=== PATIENT | female | born 2000 | race Caucasian/White ===

== ENCOUNTER 2024-09-05 20:20 | Inpatient (IN) ==
[2024-09-05] MEDS ORDERED: LIDOCAINE 1% LOCAL 20 ML VIAL INFIL PRN (21:01)
[2024-09-05] MEDS ORDERED: ACETAMINOPHEN 325 MG TAB PO PRN (21:01)
[2024-09-05] MEDS ORDERED: OXYTOCIN 30 UNITS/NSS 30 UNITS/500 ML BAG IV PRN (21:01)
[2024-09-05] MEDS ORDERED: CALCIUM CARBONATE 500 MG CHEWABLE TAB PO PRN (21:01)
--- NOTE | 2024-09-05 21:08 | History & Physical Report ---
Date of Service September 05, 2024 Assessment & Plan (1) Uterine contractions at greater than 20 weeks of gestation: Plan: 23-year-old -0-0-1 at 40 weeks and 3 days of gestation presenting today with irregular contractions, cervical change since last week, Vital signs stable afebrile, GBS negative, FHR categ I No medical problems, Plan to admit, monitor, labs, we discussed the questions of expectant management versus augmentation with Pitocin, epidural and then AROM. Patient decided to walk around, expect management for now and will think about options. All questions were answered. (2) Post-term , 40-42 weeks of gestation: History of Present Illness Chief Complaint: Contractions Primary Care Provider: NO PCP patient is a 23-year-old -0-0-1 at 40 weeks and 3 days of gestation who has been feeling contractions since this morning, they got more regular and painful after 3 PM. They have been coming every 5 to 6 minutes and the pain level is 8/10 when it was the most severe. She denies leakage of fluid or vaginal bleeding. She reports good movements. Her has been uncomplicated, GBS negative. She was here last week with irregular contractions and her cervix was unchanged, she was sent home and was scheduled for induction of labor for this morning. Patient decided to cancel and reschedule for next week. She was waiting for her labor to start. Allergies Allergy/AdvReac Type Severity Reaction Status Date / Time No Known Allergies Allergy Verified 02/14/24 14:28 Home Medications Medication Instructions Recorded Confirmed Type vits no.124-ferrous fum 1 tab PO DAILY 08/29/24 08/29/24 History 27 mg iron-folic acid 800 mcg tablet ( Vitamin) Patient History Medical History PCOS (polycystic ovarian syndrome) Varicella vaccination Surgical History H/O endoscopy Family History Denies family history of Ovarian cancer Breast cancer Colorectal cancer Social History Smoking Status: Never smoker Do You Dip or Chew Tobacco: No; Hx Alcohol Use: No Hx Substance Use: No Preferred Language: Jordanian Communication Ability: Effective Metrology Engineer Required: No Beliefs That Will Affect Care: Orthodoxy Orthodoxy Beliefs: Holiness marital status: marital status details: Thompson Mina (27) [phone] Current Living Situation: Family Current Living Situation Comment: Living with and son, no pets current occupational status: employed current occupation: [employer] How many Children do You have: 1 Other Information That Helps Us Care for You: No Feels Safe at Home: Yes Assistive Devices: None OB History Full-term , 2 years ago [facility] History no history of STDs, no history of chlamydia, gonorrhea, herpes Review of Systems as per Subjective / HPI Physical Exam Constitutional: WD/WN, vitals as above well developed, well nourished and comfortable ( between contractions, mild distress with contractions) Genitourinary: normal external appearance OB Exam Abdomen: + vertex Manual OB Exam: + cervical dilation 5 cm, + cervical effacement 60% and + station -2 OB Exam Monitor Tracing: + external uterine monitor used and + category I Results & Data Vital Signs (Past 12 Hours) Vital Signs Temp Pulse Resp BP 09/05/24 20:35 36.7 C 18 09/05/24 20:32 95 H 102/58 L
[2024-09-05 21:43] LABS: Hematocrit (blood only) 35.6 % (37.0-47.0); Hemoglobin 12.2 g/dl (12.0-16.0); Mean Corpuscular Hemoglobin 29.7 pg (25.0-34.0); Mean Corpuscular Hgb Conc 34.3 g/dL (32.0-36.0); Mean Corpuscular Volume 86.6 fL (80.0-100.0); Mean Platelet Volume 10.9 fL (9.4-12.4); Platelet Count 170 K/uL (130-400); RDW Coefficient of Variation 13.5 % (11.5-14.5); RDW Standard Deviation 41.9 fL (36.4-46.3); Red Blood Count 4.11 M/uL (4.20-5.40); White Blood Count 13.43 K/ul (4.8-10.8)
[2024-09-05] MEDS ORDERED: NALOXONE HCL 1 MG in SODIUM CHLORIDE 0.9% 1,000 ML IV PRN (22:47)
[2024-09-05] MEDS ORDERED: fentaNYL citrate PF 100 MCG/2 ML VIAL EPI PRN (22:47)
[2024-09-05] MEDS ORDERED: LIDOCAINE 2% MPF LOCAL 5 ML VIAL EPI PRN (22:47)
[2024-09-05] MEDS ORDERED: diphenhydrAMINE 50 MG/ML VIAL IV PRN (22:47)
[2024-09-05] MEDS ORDERED: ROPIVACAINE 0.5% PF 5 MG/ML 20 ML VIAL EPI PRN (22:47)
[2024-09-05] MEDS ORDERED: fentANYL 2 MCG/ML BUPIVacaine 0.125%-NSS 100ML BAG EPI PRN (22:47)
[2024-09-05] MEDS ORDERED: NALOXONE HCL 0.4 MG/1 ML VIAL/CARP IV PRN (22:47)
[2024-09-05] MEDS ORDERED: SODIUM CHLORIDE 0.9% PF INJ 10 ML VIAL EPI PRN (22:47)
[2024-09-05] MEDS ORDERED: NALBUPHINE HCL INJ 10 MG/ML AMP IV PRN (22:47)
[2024-09-05] MEDS ORDERED: BUPIVACAINE 0.25% PF 30 ML VIAL EPI PRN (22:47)
[2024-09-05] MEDS ORDERED: ONDANSETRON INJ 2 MG/ML 2 ML VIAL IV PRN (22:47)
[2024-09-05] MEDS ORDERED: ePHEDrine sulfate 50 MG/ML AMP IV PRN (22:47)
--- NOTE | 2024-09-05 22:50 | Anesthesiology Consultation ---
Date of Service September 05, 2024 Assessment & Plan (1) Encounter for pre-operative examination: Chart Review Chart Review: Patient NOT seen in Pre Admission Testing and Acceptable Risk for Labor Epidural Consults Requested none History Height/Weight Height: 5 ft 2 in Weight: 68.039 kg Allergies Allergy/AdvReac Type Severity Reaction Status Date / Time No Known Allergies Allergy Verified 02/14/24 14:28 Medications Home Medications Medication Instructions Recorded Confirmed Last Taken vits no.124-ferrous fum 1 tab PO DAILY 08/29/24 08/29/24 08/28/24 27 mg iron-folic acid 800 mcg tablet ( Vitamin) Past Medical History Medical History (Updated 09/05/24 @ 22:49 by Clay Wise MD) Encounter for pre-operative examination PCOS (polycystic ovarian syndrome) Varicella vaccination Past Family History Family History Denies family history of Ovarian cancer Breast cancer Colorectal cancer Past Surgical History Surgical History H/O endoscopy Social History Smoking Status: Never smoker Do You Dip or Chew Tobacco: No Hx Alcohol Use: No Hx Substance Use: No substance use type: does not use Physical Exam Vital Signs Last Vital Signs Temp 36.7 C 09/05/24 20:35 Pulse 95 H 09/05/24 20:32 Resp 18 09/05/24 20:35 BP 102/58 L 09/05/24 20:32 Testing Laboratory Results 09/05/24 21:28
[2024-09-05] MEDS: SODIUM CHLORIDE 0.9% 1,000 ML IV SCH (23:00)
[2024-09-05] MEDS: LIDOCAINE 2%/EPINEPHRINE 1:200,000 20 ML PF ONE (23:36)
[2024-09-05] MEDS: fentaNYL citrate PF 100 MCG/2 ML VIAL ONE (23:36)
[2024-09-05] MEDS: BUPIVACAINE 0.25% PF 30 ML VIAL ONE (23:37)
[2024-09-05] MEDS: SODIUM CHLORIDE 0.9% PF INJ 10 ML VIAL ONE (23:37)
[2024-09-05] MEDS: fentANYL 2 MCG/ML BUPIVacaine 0.125%-NSS 100ML BAG ONE (23:38)
--- NOTE | 2024-09-06 00:23 | Obstetrical Progress Note ---
Date of Service September 06, 2024 Assessment & Plan Admission and Anticipated Discharge Date Admission Date: September 05, 2024 Subjective Patient is comfortable, received epidural for pain. Vital signs stable afebrile, heart rate category 1, [place] shows contractions every 5 to 6 minutes, Vaginal exam 5 to 6 cm, 70% effaced, -1, Patient does not want augmentation with oxytocin neither AROM, she wants to rest and expectant management for now, Continue to monitor closely. Results & Data Vital Signs (Past 12 Hours) Vital Signs Temp Pulse Resp BP Pulse Ox 09/06/24 00:19 82 93/54 L 09/06/24 00:17 87 100 09/06/24 00:16 82 82/52 L 09/06/24 00:13 83 86/50 L 09/06/24 00:12 77 100 09/06/24 00:10 76 82/49 L 09/06/24 00:09 78 82/52 L 09/06/24 00:07 92 H 82/47 L 100 09/06/24 00:05 90 88/50 L 09/06/24 00:02 100 09/06/24 00:02 91 H 09/06/24 00:02 96 H 83/50 L 09/05/24 23:58 80 09/05/24 23:58 96/57 L 09/05/24 23:58 93 09/05/24 23:58 95 H 09/05/24 23:57 100 09/05/24 23:57 91 H 09/05/24 23:55 94 H 09/05/24 23:55 98/58 L 09/05/24 23:52 100 09/05/24 23:52 83 09/05/24 23:52 103/55 L 09/05/24 23:49 90 09/05/24 23:49 97/58 L 09/05/24 23:47 99 09/05/24 23:47 84 09/05/24 23:46 94 H 09/05/24 23:46 112/61 09/05/24 23:43 78 09/05/24 23:43 105/62 09/05/24 23:42 99 09/05/24 23:42 88 09/05/24 23:40 87 09/05/24 23:40 102/57 L 09/05/24 23:37 100 09/05/24 23:37 82 09/05/24 23:37 100/59 L 09/05/24 23:35 100 H 09/05/24 23:35 97/58 L 09/05/24 23:32 100 09/05/24 23:32 81 09/05/24 23:30 91 09/05/24 23:30 85 09/05/24 23:28 102 H 09/05/24 23:28 117/57 L 09/05/24 23:27 100 09/05/24 23:27 91 H 09/05/24 23:24 90 09/05/24 23:24 91 H 09/05/24 23:22 100 09/05/24 23:22 94 H 09/05/24 23:18 92 H 09/05/24 23:18 115/68 09/05/24 23:17 99 09/05/24 23:17 84 09/05/24 23:17 91 09/05/24 23:17 82 09/05/24 20:35 36.7 C 18 09/05/24 20:32 95 H 102/58 L
[2024-09-06] MEDS ORDERED: NURSING L&D Epidural Breakthrough Pain Update ONE (00:48)
[2024-09-06] MEDS: ePHEDrine sulfate 50 MG/ML AMP ONE (00:56)
[2024-09-06] MEDS: fentaNYL citrate PF 100 MCG/2 ML VIAL EPI STA (01:05)
[2024-09-06] MEDS: BUPIVACAINE 0.25% PF 30 ML VIAL EPI STA (01:05)
[2024-09-06] MEDS: LIDOCAINE 2%/EPINEPHRINE 1:200,000 20 ML PF EPI STA (01:05)
[2024-09-06] MEDS: SODIUM CHLORIDE 0.9% PF INJ 10 ML VIAL EPI STA (01:05)
[2024-09-06] MEDS: OXYTOCIN 30 UNITS/NSS 30 UNITS/500 ML BAG IV PRN (01:14)
--- NOTE | 2024-09-06 05:37 | Obstetrical Progress Note ---
Date of Service September 06, 2024 Assessment & Plan Admission and Anticipated Discharge Date Admission Date: September 05, 2024 Subjective Patient is reevaluated. Patient agreed to start on IV oxytocin For augmentation. She was feeling numb on her legs and wanted that epidural to be turned off. then she started to feel pain on the right side. anesthesiology was consulted and they really started the epidural on the prior rate. Patient still painful on the right side with contractions, denies pressure or urge to push. She declines vaginal exam to check her progress. heart rate category 1. Continue to monitor closely. Results & Data Vital Signs (Past 12 Hours) Vital Signs Temp Pulse Resp BP Pulse Ox 09/06/24 05:32 82 100 09/06/24 05:27 78 95 09/06/24 05:25 72 92 09/06/24 05:23 79 87/51 L 09/06/24 05:22 73 100 09/06/24 05:19 70 94 09/06/24 05:17 75 100 09/06/24 05:12 85 97 09/06/24 05:08 90 107/59 L 09/06/24 05:07 80 100 09/06/24 05:02 76 99 09/06/24 04:57 78 99 09/06/24 04:54 74 100/47 L 09/06/24 04:52 80 99 09/06/24 04:47 82 100 09/06/24 04:42 83 97 09/06/24 04:40 80 103/51 L 09/06/24 04:37 88 99 09/06/24 04:33 81 94 09/06/24 04:32 75 100 09/06/24 04:27 81 99 09/06/24 04:25 85 101/53 L 09/06/24 04:22 80 97 09/06/24 04:17 84 97 09/06/24 04:12 82 100 09/06/24 04:08 80 92/53 L 09/06/24 04:07 94 H 98 09/06/24 04:02 93 H 96 09/06/24 03:57 79 99 09/06/24 03:53 81 88/49 L 09/06/24 03:52 83 98 09/06/24 03:47 86 98 09/06/24 03:42 86 97 09/06/24 03:38 94 H 88/53 L 09/06/24 03:37 91 H 97 09/06/24 03:32 77 97 09/06/24 03:27 81 97 09/06/24 03:24 76 90/49 L 09/06/24 03:22 94 H 97 09/06/24 03:17 85 97 09/06/24 03:12 93 H 98 09/06/24 03:10 82 84/52 L 09/06/24 03:07 80 98 09/06/24 03:02 36.8 C 09/06/24 03:02 94 H 99 09/06/24 02:57 77 100 09/06/24 02:54 89 118/61 09/06/24 02:52 93 H 98 09/06/24 02:47 86 98 09/06/24 02:42 87 100 09/06/24 02:40 83 98/55 L 09/06/24 02:37 85 98 09/06/24 02:32 81 98 09/06/24 02:27 87 98 09/06/24 02:22 93 H 98 09/06/24 02:17 97 H 97 09/06/24 02:12 94 H 98 09/06/24 02:09 87 95/53 L 09/06/24 02:07 84 96 09/06/24 02:02 87 97 09/06/24 01:57 87 98 09/06/24 01:54 93 H 96/52 L 09/06/24 01:52 85 99 09/06/24 01:47 87 98 09/06/24 01:42 82 98 09/06/24 01:40 82 102/52 L 09/06/24 01:37 81 99 09/06/24 01:32 85 98 09/06/24 01:27 89 99 09/06/24 01:26 94 H 90 09/06/24 01:23 90 95/51 L 09/06/24 01:22 94 H 100 09/06/24 01:19 90 90/54 L 09/06/24 01:17 92 H 98 09/06/24 01:16 85 96/52 L 09/06/24 01:13 85 101/54 L 09/06/24 01:12 87 97 09/06/24 01:10 91 H 96/53 L 90 09/06/24 01:07 86 90/55 L 97 09/06/24 01:05 81 94 09/06/24 01:04 92 H 92/53 L 09/06/24 01:02 78 100 09/06/24 01:01 114 H 96/52 L 09/06/24 01:00 88 92 09/06/24 00:58 82 93/55 L 09/06/24 00:57 81 100 09/06/24 00:55 82 87/48 L 09/06/24 00:52 83 84/50 L 100 09/06/24 00:49 93 H 83/50 L 09/06/24 00:47 87 100 09/06/24 00:46 89 79/51 L 09/06/24 00:45 84 92 09/06/24 00:43 81 75/45 L 09/06/24 00:42 83 100 09/06/24 00:41 80 73/41 L 09/06/24 00:37 87 100 09/06/24 00:34 79 78/48 L 09/06/24 00:32 89 100 09/06/24 00:31 82 76/47 L 09/06/24 00:28 83 81/47 L 09/06/24 00:27 82 100 09/06/24 00:25 91 H 86/49 L 09/06/24 00:22 87 83/47 L 100 09/06/24 00:19 82 93/54 L 09/06/24 00:17 87 100 09/06/24 00:16 82 82/52 L 09/06/24 00:13 83 86/50 L 09/06/24 00:12 77 100 09/06/24 00:10 76 82/49 L 09/06/24 00:09 78 82/52 L 09/06/24 00:07 92 H 82/47 L 100 09/06/24 00:05 90 88/50 L 09/06/24 00:02 100 09/06/24 00:02 91 H 09/06/24 00:02 96 H 83/50 L 09/05/24 23:58 80 09/05/24 23:58 96/57 L 09/05/24 23:58 93 09/05/24 23:58 95 H 09/05/24 23:57 100 09/05/24 23:57 91 H 09/05/24 23:55 94 H 09/05/24 23:55 98/58 L 09/05/24 23:52 100 09/05/24 23:52 83 09/05/24 23:52 103/55 L 09/05/24 23:49 90 09/05/24 23:49 97/58 L 09/05/24 23:47 99 09/05/24 23:47 84 09/05/24 23:46 94 H 09/05/24 23:46 112/61 09/05/24 23:43 78 09/05/24 23:43 105/62 09/05/24 23:42 99 09/05/24 23:42 88 09/05/24 23:40 87 09/05/24 23:40 102/57 L 09/05/24 23:37 100 09/05/24 23:37 82 09/05/24 23:37 100/59 L 09/05/24 23:35 100 H 09/05/24 23:35 97/58 L 09/05/24 23:32 100 09/05/24 23:32 81 09/05/24 23:30 91 09/05/24 23:30 85 09/05/24 23:28 102 H 09/05/24 23:28 117/57 L 09/05/24 23:27 100 09/05/24 23:27 91 H 09/05/24 23:24 90 09/05/24 23:24 91 H 09/05/24 23:22 100 09/05/24 23:22 94 H 09/05/24 23:18 92 H 09/05/24 23:18 115/68 09/05/24 23:17 99 09/05/24 23:17 84 09/05/24 23:17 91 09/05/24 23:17 82 09/05/24 20:35 36.7 C 18 09/05/24 20:32 95 H 102/58 L
[2024-09-06] MEDS ORDERED: HYDROCORTISONE ACETATE 25 MG SUPP PR PRN (06:51)
[2024-09-06] MEDS ORDERED: bisacodyL 10 MG SUPP PR PRN (06:51)
[2024-09-06] MEDS ORDERED: oxyCODONE/ACETAMINOPHEN 5mg/325mg TAB PO PRN (06:51)
[2024-09-06] MEDS ORDERED: BENZOCAINE 20% SPRY 85 APPLN/85 GM CAN EXT PRN (06:51)
[2024-09-06] MEDS ORDERED: OXYTOCIN 30 UNITS/NSS 30 UNITS/500 ML BAG IV PRN (06:51)
--- NOTE | 2024-09-06 06:54 | Delivery Summary ---
Vaginal Delivery Summary Date of Service September 06, 2024 Vaginal Delivery Summary Patient was found to be fully dilated and desires to push. She pushed for about 10 min and delivered the head and then shoulders with minimal traction at 06:31. Nuchal cordx1 was reduced. The baby was handed off to the mother. The cord was clampedx2 and cut after 1 minute per patient request. The vagina and perineum were checked and found to have 2nd degree perineal laceration. Rectal exam was done and noted good sphincter tone. The gloves were changes. The vaginal mucosa was repaired with 2/0 vicryl and skin on subcuticular fashion. The placenta was delivered spontaneously as intact and complete. The uterus was explored and found to be empty. QBL was 244 ml. The fundus was firm The baby was a viable female , Apgars 8/9, the weight is pending The mother and the baby tolerated the procedure well. No complications happened and I was present during whole procedure.
--- OUTSIDE RECORDS SUMMARY | 2024-09-06 07:11 | External Medical Summary | Summary of Care ---
Author Name Unknown Organization [facility] Address [address] [place] [address] Phone [phone] Care Team Providers Care Project Engineer Name Role Phone ReynaTukcer Edith BLOOD Primary Care Provider Encounter Details Date Type Department Care Team (Late st Contact Info) Description 08/29/2024 [facility] [address] [place] [id number] Josi Aaron MD [address] [place] [id number] Allergies No known active allergiesdocumented as of this encounter (statuses as of 08/29/2024) Medications 6.75-0.2 MG Oral Tablet Take by mouth. Active documented as of this encounter (statuses as of 08/29/2024) Active Problems Problem Noted Date Diagnosed Date screening for malformation using ultra sonics 05/20/2024 Overview (05/20/2024): Asymmetry of lateral ventricles of brain, unknown significance. Recommend [facility]. Assessment & Plan (05/27/2024 11:10 PM EDT): She presents for a anatomy survey. She was referred due to concern for asymmetry of the lateral ventricles on recent imaging. Labs reviewed: -- genetic screening not performed Imaging reviewed: -- 05/17/24 US report -- IMPRESSION 1. Single live fetus with composite age 23 weeks 5 days and MAHAMED of 09/08/2024. 2. Some asymmetry in lateral ventricles of brain and uncertain significance. Other anatomy well demonstrated and normal, as above. We reviewed the results of today's ultrasound. The estimated weight is appropriate for gestational age in the 28th percentile. The visualized anatomy is unremarkable in appearance. The left lateral ventricle is larger than the right, but both measure within normal limits. The amniotic fluid amount appears normal. We discussed that ultrasound is not able to identify all anomalies, but it is reassuring that no anomalies were seen today. We reviewed the finding of asymmetry of the lateral ventricles. This is most likely related to normal variation. We will plan to reassess in about 6 weeks to confirm that ventriculomegaly remains absent. We discussed the option of genetic screening as this has not previously been performed. She declines at this time. Supervision of other normal , antepartu m 04/18/2024 Overview (05/08/2024): Transferring care 04/18/2024 from [facility] [place] 02/14/24: WBC 7.52, H/H 11.9/35.1, plt 266, rubella immune, RPR nonreactive, HIV negative, Hep B SaG nonreactive, A+ bloodtype/negative antibodies, GC/CT negative, Health counseling 04/18/2024 Overview (08/20/2024): Problem Action Taken Date entered Entered by Date resolved Current needs or questions Patient denies having any current needs or questions 04/18/2024 Ines Morales RN 04/18/24 Problem Action Taken Date entered Entered by Date resolved Current needs or questions Patient denies having any current needs or questions 06/12/2024 Kimberly Duran RN 06/12/2024 Problem Action Taken Date entered Entered by Date resolved Current needs or questions Patient denies having any current needs or questions 08/15/2024 Kimberly Duran RN 08/15/2024 Problem Action Taken Date entered Entered by Date resolved Current needs or questions Planning for GBS today Patient denies having any current needs or questions 08/20/2024 Kimberly Duran RN 08/20/2024 Assessment & Plan (07/17/2024 8:51 AM EST): Problem Action Taken Date entered Entered by Date resolved Current needs or questions Patient denies having any current needs or questions 07/17/2024 Kimberly Duran RN 07/17/2024 Assessment & Plan (05/22/2024 7:49 AM EDT): Problem Action Taken Date entered Entered by Date resolved Current needs or questions Patient denies having any current needs or questions 05/22/2024 Kimberly Duran RN 05/22/2024 Estimated Date of Delivery Comme nts Yes 09/02/2024 Based on Ultraso und documented as of this encounter (statuses as of 08/29/2024) Social History Tobacco Use Types Packs/Day Years Used Date Smoking Tobacco: Never Passive Smoke Exposure: Never Smokeless Tobacco: Never Alcohol Use Standard Drinks/Week Comments Never 0 (1 standard drink = 0.6 oz pur e alcohol) Hunger Vital Sign Answer Date Recorded Within the past 12 months, y ou worried that your food would run out before you got the money to buy more. Never true 06/11/20 24 Within the past 12 months, t he food you bought just didn't last and you didn't have money to get more. Never true 06/11/2024 [place] Depression Scale Answer Date Recorded [place] Depression Scale Total 2 04/18/2024 The thought of harming myself has occurred to me . Never 04/18/2024 Childcare Answer Date Recorded Do you feel overwhelmed with taking care of a child, family member or friend? No 06/11/2024 Does your family need help f inding childcare? (Household - for ages 0-17 years) Not on file 06/11/2024 Clothing Answer Date Recorded Have you been unable to get clothing when it was really needed? No 06/11/2024 Is your family able to get c lothes or diapers when needed? (Household - for ages 0-17 years) Not on file 06/11/2024 Personal Safety Answer Date Recorded Do you feel unsafe or have concerns for your saf ety? No 06/11/2024 Do you have concerns for you r family's safety? (Household - for ages 0-17 years) Not on file 06/11/2024 Utilities Answer Date Recorded Do you have trouble paying y our heating, water, or electric bill? No 06/11/2024 Is your family able to pay t he heat, water, or electric bill? (Household - for ages 0-17 years) Not on file 06/11/2024 Does your family have access to good internet? (Household - for ages 0-17 years) Not on file 06/11/2024 Employment Status Answer Date Recorded Are you unemployed or without regular income? No 06/11/2024 Does the household have a re lar source of income? (Household - for ages 0-17 years) Not on file 06/11/2024 Social Connections Answer Date Recorded How often do you feel lonely or isolated from th ose around you? Never 06/11/2024 Financial Resource Strain Answer Date R ecorded Do you have any trouble payi ng for your medications, or do you think you might in the future? No 06/11/2024 Does your family have troubl e paying for medicine? (Household - for ages 0-17 years) Not on file 06/11/2024 Transportation Needs Answer Date Record ed Do you have trouble getting a ride to medical visits or work? (Adult - for ages 18 years and over) Not on file 06/11/2024 Does your family have a hard time getting a ride to doctors visits? (Household - for ages 0-17 years) Not on file 06/11/2024 Has lack of transportation k ept you from medical appointments, meetings, work, or from getting things needed for daily living? Check all that apply. No 06/11/2024 Do you (or your family) have trouble finding or paying for a ride (transportation)? (Household - for ages 0-17 years) Not on file 06/11/2024 Housing Stability Answer Date Recorded Do you currently live in a s helter or have no steady place to sleep at night? No 06/11/2024 Do you think you are at risk of becoming homeless? (Adult - for ages 18 years and over) Not on file 06/11/2024 Does your family worry about paying for your home or becoming homeless? (Household - for ages 0-17 years) Not on file 1 Are you homeless or worried that you might be in the future? No 06/11/2024 Are you (or your family) reji eless or worried that you might be in the future? (Household - for ages 0-17 years) Not on file Food Insecurity Answer Date Recorded Do you need food for this week? No 06/11/2024 Are you able to get enough f ood for your family? (Household - for ages 0-17 years) Not on file 06/11/2024 Does your family need food t his week? (Household - for ages 0-17 years) Not on file 06/11/2024 Do you always have enough fo od for your family? (Household - for ages 0-17 years) Not on file 06/11/2024 Estimated Date of Delivery Comme nts Yes 09/02/2024 Based on Ultraso und Sex and Gender Information Value Date Recorded Sex Assigned at Female 07/11/2023 10:07 PM EST Legal Sex Female 10:35 AM EDT Gender Identity Female 07/11/2023 10:07 PM EST Sexual Orientation Not on file Occupation Industry Job Start Date Job End Date teacher Not on file Not on file Not on file documented as of this encounter Miscellaneous Notes * Telephone Encounter - Che Villatoro RN - 08/29/2024 8:46 AM EST Scheduled for CAROLINE tomorrow 1-3 at 11:15. Attempted to call patient to make aware, no answer, LVM toreturn call. Ruth, Please note the scheduled IOL per message below. * Telephone Encounter - Josi Aaron MD - 08/29/2024 3:40 AM EST Patient is in labor for labor check, not in labor Patient stated that she was not scheduled for a follow-up visit when she left office during last encounter. We scheduled her for induction of labor on September 05 at [facility]. Please schedule an return OB appointment before then and let her know. Thank you documented in this encounter Plan of Treatment Upcoming Encounters Date Type Department Care Team (Late st Contact Info) Description 08/30/2024 11:15 AM EST Office Visit Gynecology/Obstetrics [facility] [address] [place] [id number] Maddie Clayton PA-C [address] [place] [id number] Health Maintenance Due Date Last Done Comments Depression Screening 2011 Gonorrhea / Chlamydia Screen 2014 HIV Screening 2014 HPV (Gardasil) Vaccine (1 - 3-dose series) 2014 Hepatitis C Screening 2017 DTap/Tdap Vaccines (1 - Tdap) 2018 Hepatitis B Vaccine (1 of 3 - 19+ 3-dose series) 2018 Pap Smear 2020 COVID-19 Vaccine ( - 2023-2 5 season) 2024 Influenza Vaccine (FLU shot) (#1) 2024 MENINGOCOCCAL (MENACTRA/MENVEO) Aged Out No longer eligible based on patient's age to complete this topic Pneumococcal Vaccine: Pediat rics (0 to 5 Years) and At-Risk Patients (6 to 18 Years and 19+ Years) Aged Out No longer angélica gible based on patient's age to complete this topic documented as of this encounter Medical Devices Not on filedocumented as of this encounter Care Teams Project Engineer Relationship Specialty Start Date End Date Tucker Orellana DO [address] [place] [id number] PCP - General Family Medicine 03/04/24 documented as of this encounter
--- OUTSIDE RECORDS SUMMARY | 2024-09-06 07:11 | External Medical Summary | Summary of Care ---
Author Name Unknown Organization [facility] Address [address] [place] [address] Phone [phone] Care Team Providers Care Rn Sane Name Role Phone ReynaTucker Edith BLOOD Primary Care Provider [phone] Reason for Visit * Reason Comments Return Visit Encounter Details Date Type Department Care Team (Late st Contact Info) Description 09/02/2024 10:45 AM EST Office Visit Gynecology/Obstetric s Pita Harry [address] [facility] [place] [address] Socorro [facility]zger CR[facility] [address] [facility] [address] Supervision of other normal , antepartum*; screening for malformation using ultrasonics; Blood test declined; Uterine size date discrepancy Allergies No known active allergiesdocumented as of this encounter (statuses as of 09/02/2024) Medications 6.75-0.2 MG Oral Tablet Take by mouth. Active documented as of this encounter (statuses as of 09/02/2024) Active Problems Problem Noted Date Diagnosed Date Blood test declined 09/02/2024 Overview (09/02/2024): Declined GTT, hemoglobin a1c screening for malformation using ultra sonics 05/20/2024 Overview (05/20/2024): Asymmetry of lateral ventricles of brain, unknown significance. Recommend [facility]. Assessment & Plan (05/27/2024 11:10 PM EDT): [...] 04/18/2024 Overview (05/08/2024): Transferring care 04/18/2024 from [facility] [place]. 02/14/24: WBC 7.52, H/H 11.9/35.1, plt 266, rubella immune, RPR nonreactive, HIV negative, Hep B SaG nonreactive, A+ bloodtype/negative antibodies, GC/CT negative, Health counseling 04/18/2024 Overview (09/02/2024): Problem Action Taken Date entered Entered by [...] or questions 08/20/2024 Kimberly Duran RN 08/20/2024 Problem Action Taken Date entered Entered by Date resolved Current needs or questions Patient denies having any current needs or questions 09/02/2024 Che Villatoro RN 09/02/2024 Assessment & Plan (07/17/2024 8:51 AM EST): [...] as of this encounter (statuses as of 09/02/2024) Resolved Problems Problem Noted Date Diagnosed Date Resolved Date Screening declined by patient 09/02/2024 09/02/2024 Overview (09/02/2024): Declined GBS testing documented as of this encounter (statuses as of 09/02/2024) Social History Tobacco Use Types Packs/Day Years [...] money to buy more. Never true 06/11/20 Within the past 12 months, t he food you bought just didn't last and you didn't have money to get more. Never true 06/11/2024 [place] Depression Scale Answer Date Recorded [place] Depression Scale Total 2 04/18/2024 The thought [...] 06/11/2024 Does the household have a re gular source of income? (Household - for ages [...] on file documented as of this encounter Last Filed Vital Signs Vital Sign Reading Time Taken Comments Blood Pressure 94/52 09/02/2024 10:59 AM EST Pulse - - Temperature - - Respiratory Rate - - Oxygen Saturation - - Inhaled Oxygen Concentration - - Weight 68.6 kg (151 lb 3.2 oz) 09/02/2024 10:59 AM EST Height - - Body Mass Index 27.21 08/15/2024 10:36 AM EST documented in this encounter Progress Notes * Antonia Cross CMA - 09/02/2024 10:59 AM EST 40w0d Denies any concerns * Socorro Metzger CRNP - 09/02/2024 10:56 AM EST 40w0d Sporadic contractions. Baby is moving well. Denies leaking/bleeding. IOL scheduled for this ; pt wishes to move this to 41+ weeks, as she thought an appointmentwas scheduled for 09/05 rather than an induction. Date changed to 09/12. Advise NST and SONG at 41 weeks. S<D, recommend growth scan. Pt agreeable to completing today. Last u/s was with MFM on 08/01, [id number] %ile. Return in 1 week. Call sooner with decreased FKC, possible labor. GE Vargas documented in this encounter Nursing Notes * Che Villatoro RN - 09/02/2024 11:15 AM EST Patient seen by [facility] Insurance Writer. Patient denies any questions or concerns. Che Villatoro RN documented in this encounter Plan of Treatment Upcoming Encounters Date Type Department Care Team (Late st Contact Info) Description 09/02/2024 11:30 AM EST Imaging Radiology [facility] [address] [facility] [place] [address] Supervision of other normal , antepartum; Uterine size date discrepancy 09/10/2024 11:00 AM EST Office Visit Gynecology/Obstetric s [facility] [address] [facility] [place] [address] Mariel Neil CRNP [address] [place] [address] Scheduled Orders Name Type Priority Associated Diagnoses Orde r Schedule US PREG FOLLOW-UP EACH FETUS Medical Imaging Routine Supervision of other normal , antepartum Uterine size date discrepancy Expected: 09/02/2024 (Approximate), Expires: 2025 Health Maintenance Due Date Last Done Comments [...] Not on filedocumented as of this encounter Visit Diagnoses Diagnosis Supervision of other normal , antepartum- Primary Abnormal ultrasound of brain screening for malformation using ultrasonics- Primary Encounter for routine screening for malformation using ultrasonics Supervision of other normal , antepartum- Primary screening for malformation using ultrasonics Encounter for routine screening for malformation using ultrasonics Supervision of other normal , antepartum- Primary screening for malformation using ultrasonics Encounter for routine screening for malformation using ultrasonics Blood test declined Uterine size date discrepancy Uterine size date discrepancy, antepartum condition or complication Supervision of other normal , antepartum Uterine size date discrepancy Uterine size date discrepancy, antepartum condition or complication documented in this encounter Care Teams Rn Sane Relationship Specialty Start Date End Date Tucker Orellana DO [address] [facility] [place] [address] PCP - General Family Medicine 03/04/24 documented as of this encounter
--- OUTSIDE RECORDS SUMMARY | 2024-09-06 07:11 | External Medical Summary | Summary of Care ---
Author Name Unknown Organization [facility] Address [address] [place] [address] Phone [phone] Care Team Providers Care Outside Plant Supervisor Name Role Phone ReynaTucker Edith BLOOD Primary Care Provider [phone] Encounter Details Date Type Department Care Team (Late st Contact Info) Description 09/02/2024 Tele[facility] [address] [place] [address] BackSocorro coppola CRNP [address] [facility] [place] [address] Allergies No known active allergiesdocumented as of [...] lateral ventricles of brain, unknown significance. Recommend [facility]. Assessment & Plan (05/27/2024 11:10 PM EDT): She presents for a anatomy survey. She was referred due to concern for asymmetry of the lateral ventricles on recent imaging. Labs reviewed: -- genetic screening not performed Imaging reviewed: -- 05/17/24 US report -- IMPRESSION 1. Single live fetus with composite age 23 weeks 5 days and MAHAMDE of 09/08/2024. 2. Some asymmetry in lateral [...] 04/18/2024 Overview (05/08/2024): [place]18[place]20[place] [facility] [place] 02/14/24: WBC 7.52, H/H 11.9/35.1, plt 266, [...] money to get more. Never true 06/11/2024 [place] Depression Scale Answer Date Recorded [place] Depression Scale Total 2 04/18/2024 The thought [...] encounter Miscellaneous Notes * Telephone Encounter - Socorro Metzger CRNP - 09/02/2024 12:36 PM EST Spoke with MFJuvencio [place] through [place] [employer] in regards to head measurements on recent ultrasound. Per MD, no change in management due to late gestational age and likely due to position. [facility] Vargas documented in this encounter Plan of Treatment Upcoming Encounters Date Type Department Care Team (Late st Contact Info) Description 09/10/2024 10:30 AM EST Office Visit Gynecology/Obstetrics Pita Harry [address] [place] [address] Mariel Neil CRNP [address] [place] [address] Piero, Non Stress Tests Ryann [address] [place] [address] Health Maintenance Due Date Last Done Comments Depression Screening 2011 Gonorrhea / Chlamydia Screen 2014 HIV Screening 2014 HPV (Gardasil) Vaccine (1 - 3-dose series) 2014 Hepatitis C Screening 2017 DTap/Tdap Vaccines (1 - Tdap) 2018 Hepatitis B Vaccine (1 of 3 - 19+ 3-dose series) 2018 Pap Smear 2020 COVID-19 Vaccine (1 - 2023-2 5 season) 2024 Influenza Vaccine [...] filedocumented as of this encounter Care Teams Outside Plant Supervisor Relationship Specialty Start Date End Date Tucker Orellana DO [address] [facility], [place] [address] PCP - General Family Medicine 03/04/24 documented as of this encounter
--- OUTSIDE RECORDS SUMMARY | 2024-09-06 07:11 | External Medical Summary | Summary of Care ---
Author Name Unknown Organization [facility] Address [address] [place] [address] Phone [phone] Care Team Providers Care Grounds Manager Name Role Phone ReynaTucker Edith BLOOD Primary Care Provider Encounter Details Date Type Department Care Team (Late st Contact Info) Description 08/29/2024 Telephone [facility] [address] [place] [address] Josi Aaron MD [address] [place] [address] Allergies No known active allergiesdocumented as of this encounter (statuses as of 08/29/2024) Medications 6.75-0.2 MG Oral Tablet Take by mouth. Active documented as of this encounter (statuses as of 08/29/2024) Active Problems Problem Noted Date Diagnosed Date screening for malformation using ultra sonics 05/20/2024 Overview (05/20/2024): Asymmetry of lateral ventricles of brain, unknown significance. Recommend [facility]. Assessment & Plan (05/27/2024 11:10 PM EDT): [...] 04/18/2024 Overview (05/08/2024): [place] [facility] [place]: WBC 7.52, H/H 11.9/35.1, plt 266, [...] money to get more. Never true 06/11/2024 [place] Depression Scale Answer Date Recorded [place] Depression Scale Total 2 04/18/2024 The thought [...] induction of labor on September 05 at [facility]. Please schedule an return OB appointment before then and let her know. Thank you documented in this encounter Plan of Treatment Upcoming Encounters Date Type Department Care Team (Late st Contact Info) Description 08/30/2024 11:15 AM EST Office Visit Gynecology/Obstetrics Pita Harry [address] [place] [address] Maddie Clayton PA-C [address] [place] [address] Health Maintenance Due Date Last Done Comments [...] filedocumented as of this encounter Care Teams Grounds Manager Relationship Specialty Start Date End Date Tucker Orellana DO [address] [place] [address] PCP - General Family Medicine 03/04/24 documented as of this encounter
--- OUTSIDE RECORDS SUMMARY | 2024-09-06 07:11 | External Medical Summary | Summary of Care ---
Author Name Unknown Organization [facility] Address [address] [place] [address] Phone [phone] Care Team Providers Care Wardrobe Coordinator Name Role Phone ReynaTucker Edith BLOOD Primary Care Provider [phone] Reason for Visit * Reason Comments Return Visit Encounter Details Date Type Department Care Team (Late st Contact Info) Description 09/02/2024 10:45 AM EST Office Visit Gynecology/Obstetric s Pita Harry [address] [facility] [place] [address] Socorro Metzger CRNP [address] [facility] [address] Supervision of other normal , antepartum*; screening [...] lateral ventricles of brain, unknown significance. Recommend [facility]. Assessment & Plan (05/27/2024 11:10 PM [...] 04/18/2024 Overview (05/08/2024): [place] [facility] [place]14[place]: WBC 7.52, H/H 11.9/35.1, plt 266, [...] money to get more. Never true 06/11/2024 [place] Depression Scale Answer Date Recorded [place] Depression Scale Total 2 04/18/2024 The thought [...] Last u/s was with MFM on 08/01, [id number] %ile. Return in 1 week. Call sooner with decreased FKC, possible labor. GE Vargas documented in this encounter Nursing Notes * Che Villatoro RN - 09/02/2024 11:15 AM EST Patient seen by [facility] Index Editor. Patient denies any questions or concerns. Che Villatoro RN documented in this encounter Plan of Treatment Upcoming Encounters Date Type Department Care Team (Late st Contact Info) Description 09/02/2024 11:30 AM EST Imaging Radiology [facility] [address] [facility] [place] [address] Supervision of other normal , antepartum; Uterine size date discrepancy 09/10/2024 11:00 AM EST Office Visit Gynecology/Obstetric s [facility] [address] [facility] [place] [address] Mariel Neil CRNP [address] [place] [address] Scheduled Orders Name Type Priority Associated Diagnoses [...] complication documented in this encounter Care Teams Wardrobe Coordinator Relationship Specialty Start Date End Date Tucker Orellana DO [address] [facility] [place] [address] PCP - General Family Medicine 03/04/24 documented as of this encounter
--- NOTE | 2024-09-06 08:49 | Anesthesia Procedure Note ---
Date of Service September 06, 2024 Anesthesia Post Epidural Note Vital Signs Vital Signs: Temp Pulse Resp BP Pulse Ox 98.2 F 85 18 93/55 L 99 09/06/24 03:02 09/06/24 08:37 09/05/24 20:35 09/06/24 08:37 09/06/24 06:52 Pain Intensity Bilateral Abdomen: Pain Intensity: 8 Notes Mental Status: alert / awake / arousable and participated in evaluation Nausea / Vomiting: adequately controlled Pain: adequately controlled Airway Patency, RR, SpO2: stable & adequate BP & HR: stable & adequate Hydration State: stable & adequate Neuraxial Anesthesia: was administered and sensory block is resolving Anesthetic Complications: no major complications apparent and Pt Satisfied with anesthetic care Epidural: Removed without complications and With tip intact
[2024-09-06] MEDS: PRENATAL VITAMIN 1 TAB PO SCH (09:21)
[2024-09-06] MEDS: DOCUSATE SODIUM 100 MG CAP PO SCH (09:21)
[2024-09-06] MEDS: FERROUS SULFATE 325 MG TAB PO SCH (09:24)
[2024-09-06] MEDS: IBUPROFEN 600 MG TAB PO PRN (14:32)
[2024-09-06] MEDS: ACETAMINOPHEN 325 MG TAB PO PRN (14:33)
[2024-09-06] MEDS: MEASLES, MUMPS & RUBELLA VIRUS VACCINE (MMR) 0.5ML VIAL SQ ONE (17:23)
[2024-09-07 02:55] VITALS: O2SAT 98
[2024-09-07] MEDS: DIPHTHER/TETAN/PERTUS Vaccine (Tdap, Adol/Adult) 0.5mL IM ONE (07:26)
--- NOTE | 2024-09-07 07:36 | Obstetrical Progress Note ---
Date of Service September 07, 2024 Subjective Ambulation: ambulating normally Voiding: no voiding problems Passing Gas:: Yes Diet Tolerance:: regular diet Lochia:: Small Feeding Type:: breast feeding Current Pain Level(1-10): 0 doing well. plans to go home after today. Physical Exam Constitutional WD/WN, vitals as above Gastrointestinal (Abdomen) Inspection/Auscultation: abdomen normal to inspection abdomen soft and non-tender. fundus firm below U. Musculoskeletal Extremities: extremities normal to inspection Skin no rashes, warm and dry Neurologic patellar DTR's 2+ bilat, sensation intact Psychiatric A+Ox3, euthymic affect Results & Data Vital Signs (Past 12 Hours) Vital Signs Temp Pulse Resp BP BP Pulse Ox O2 Del Method 09/07/24 02:53 36.4 C L 85 16 91/60 L 98 Room Air 09/06/24 22:58 36.6 C 73 18 93/59 L 96 Room Air 09/06/24 20:30 36.6 C 70 16 93/59 L 99 Room Air Laboratory Results 09/05/24 21:28 WBC 13.43 H RBC 4.11 L Hgb 12.2 Hct 35.6 L MCV 86.6 MCH 29.7 MCHC 34.3 RDW Std Deviation 41.9 RDW Coeff of Rima 13.5 Plt Count 170 MPV 10.9 Treponema pallidum Ab Negative
[2024-09-07 07:54] LABS: Hematocrit (blood only) 28.1 % (37.0-47.0); Hemoglobin 9.5 g/dl (12.0-16.0); Mean Corpuscular Hemoglobin 30.4 pg (25.0-34.0); Mean Corpuscular Hgb Conc 33.8 g/dL (32.0-36.0); Mean Corpuscular Volume 89.8 fL (80.0-100.0); Mean Platelet Volume 11.2 fL (9.4-12.4); Platelet Count 146 K/uL (130-400); RDW Standard Deviation 45.9 fL (36.4-46.3); Red Blood Count 3.13 M/uL (4.20-5.40); White Blood Count 9.71 K/ul (4.8-10.8)
[2024-09-07 16:24] VITALS: RESP 20; TEMP 98.2
[2024-09-07 16:53] VITALS: BP 91/60; PULSE 68
[2024-09-07] MEDS ORDERED: bisacodyL 5 MG TABEC PO SCH (20:00)
== END 2024-09-07 18:30 | disposition home or self-care (01) | DRG 807 ==
LOC: OPB 20:20 → 4S1 20:21 → 4E2 09-06 11:27